=== PATIENT | female | born 1990 | race Caucasian/White ===

== ENCOUNTER 2017-03-03 01:22 | Inpatient (IN) | payer OTHER ==
[2017-03-03] MEDS ORDERED: LACTATED RINGERS 1,000 ML ONE (02:43)
[2017-03-03] MEDS ORDERED: BRETHINE IVP PRN (03:18)
[2017-03-03] MEDS ORDERED: MINERAL OIL PO PRN (03:18)
[2017-03-03] MEDS ORDERED: ePHEDrine SULFATE IV PRN ×2 (03:18→06:13)
[2017-03-03] MEDS ORDERED: XYLOCAINE 2% INFILTRATI ONE ×2 (03:18→15:49)
[2017-03-03] MEDS ORDERED: BRETHINE SUB-Q PRN (03:18)
[2017-03-03] MEDS ORDERED: SUBLIMAZE IV PRN (03:18)
--- NOTE | 2017-03-03 03:18 | History and Physical Report ---
History of Present Illness Date of examination: 03/03/17 Date of admission: 03/03/17 02:26 Chief complaint: Painful contractions History of present illness: 26-year-old at 39+5 weeks presents in active labor, she is a life cycle OBGYN patient. course has been unremarkable Past History Past Medical History: no pertinent history Past Surgical History: no surgical history [employer] History: denies: chlamydia, gonorrhea, hepatitis B, hepatitis C, herpes, HIV , syphilis, trichomonas Social history: single, full code. denies: smoking, alcohol abuse, prescription drug abuse, IV drug use - Obstetrical History Expected Date of Delivery: 03/05/17 Actual Gestation: 39 Week(s) 5 Day(s) : 1 Para: 0 Medications and Allergies Allergies Allergy/AdvReac Type Severity Reaction Status Date / Time Penicillins Allergy Hives Verified 03/03/17 01:56 Home Medications Medication Instructions Recorded Confirmed Last Taken Type Vit No.130/Iron/Folic 1 tab PO DAILY 03/03/17 03/03/17 03/02/17 12:00 History [ Tablet] Review of Systems Constitutional: no fever, no chills, no lethargy, no chronic headaches Cardiovascular: no chest pain, no orthopnea, no palpitations, no edema, no syncope, no lightheadedness, no shortness of breath, no dyspnea on exertion, no high blood pressure Respiratory: no cough, no shortness of breath, no dyspnea on exertion Gastrointestinal: abdominal pain, no nausea, no vomiting Genitourinary: contractions, no vaginal bleeding, no vaginal discharge, no leakage of fluid - Vital Signs Vital signs: Vital Signs Pulse Pulse Ox 90 98 03/03/17 01:47 03/03/17 01:47 Temp Pulse Resp BP Pulse Ox 98.4 F 101 H 16 112/77 99 03/03/17 01:58 03/03/17 02:50 03/03/17 01:58 03/03/17 01:48 03/03/17 02:50 - Physical Exam Cardiovascular: Regular rate, Normal S1, Normal S2 Lungs: Positive: Clear to auscultation, Normal air movement Abdomen: Positive: normal appearance, soft. Negative: distention, tenderness, guarding, rigidity Genitourinary (Female): Positive: normal external genitalia Uterus: Positive: enlarged (EFW ~ 3600) Adnexa: both: normal Extremities: Positive: normal Results All other labs normal. Assessment and Plan A: 26 y/o at 39+5 wks in active labour -Cat 1 tracing -GBS neg P: -Admit -Labs -Epidural prn -Expectant mgt - Patient Problems (1) 39 weeks gestation of Current Visit: Yes Status: Acute (2) Active labor at term Current Visit: Yes Status: Acute
[2017-03-03] MEDS: LACTATED RINGERS 1,000 ML IV SCH ×2 (03:48→06:04)
[2017-03-03] MEDS ORDERED: PITOCin/NS 30 UNIT/500ML 30 UNITS/500 ML BAG IV SCH (04:00)
[2017-03-03 04:01] LABS: Hematocrit 35.4 % (30.3-42.9); Hemoglobin 11.7 gm/dl (10.1-14.3); Mean Corpuscular HGB Conc 33 % (30-34); Mean Corpuscular Hemoglobin 30 pg (28-32); Mean Corpuscular Volume 92 fl (79-97); Platelet Count 205 K/mm3 (140-440); Red Blood Count 3.85 M/mm3 (3.65-5.03); White Blood Count 11.5 K/mm3 (4.5-11.0)
[2017-03-03] MEDS ORDERED: ePHEDrine SULFATE ONE (04:09)
[2017-03-03] MEDS ORDERED: NARCAN 2 MG/2 ML IV PRN (06:13)
--- NOTE | 2017-03-03 06:13 | Anesthesia Consultation ---
Anesthesia Consult and Med Hx Date of service: 03/03/17 - Airway Anesthetic Teeth Evaluation: Good ROM Head & Neck: Adequate Mental/Hyoid Distance: Adequate Mallampati Class: Class II Intubation Access Assessment: Good - Pulmonary Exam CTA: Yes - Cardiac Exam Cardiac Exam: No Murmur - Pre-Operative Health Status ASA Pre-Surgery Classification: ASA2 Proposed Anesthetic Plan: Epidural - Pulmonary Hx Asthma: No COPD: No Hx Pneumonia: No - Cardiovascular System Hx Hypertension: No - Central Nervous System Hx Seizures: No Hx Psychiatric Problems: No - Endocrine Hx Renal Disease: No Hx End Stage Renal Disease: No Hx Hypothyroidism: No Hx Hyperthyroidism: No - Hematic Hx Anemia: No Hx Sickle Cell Disease: No - Other Systems Hx Alcohol Use: No
[2017-03-03] MEDS ORDERED: fentaNYL-BUPIV 2 MCG/ML-0.125% 200 MCG/100 ML BAG EPIDURAL SCH (07:00)
--- NOTE | 2017-03-03 10:15 | Progress Note ---
Assessment and Plan A: IUP @ 39 5/7 Weeks Category I Tracing Active Labor GBS Negative P: AROM Multiple Maternal Position Changes Pitocin Augmentation Subjective - Subjective Date of service: 03/03/17 Patient reports: other (Resting well under epidural) Objective - Vital Signs Vital Signs: Vital Signs - 12hr 03/03/17 03/03/17 03/03/17 01:47 01:48 01:52 Temperature Pulse Rate 90 102 H 84 Respiratory Rate Blood Pressure 112/77 Blood Pressure [Right] O2 Sat by Pulse 98 100 Oximetry 03/03/17 03/03/17 03/03/17 01:57 01:58 02:02 Temperature 98.4 F Pulse Rate 86 98 H Respiratory 16 Rate Blood Pressure Blood Pressure [Right] O2 Sat by Pulse 98 97 Oximetry 03/03/17 03/03/17 03/03/17 02:07 02:12 02:17 Temperature Pulse Rate 122 H 92 H 81 Respiratory Rate Blood Pressure Blood Pressure [Right] O2 Sat by Pulse 98 97 97 Oximetry 03/03/17 03/03/17 03/03/17 02:50 03:19 03:24 Temperature Pulse Rate 101 H 85 97 H Respiratory Rate Blood Pressure Blood Pressure [Right] O2 Sat by Pulse 99 99 99 Oximetry 03/03/17 03/03/17 03/03/17 03:29 03:34 03:35 Temperature Pulse Rate 92 H 102 H Respiratory 18 Rate Blood Pressure Blood Pressure [Right] O2 Sat by Pulse 99 100 Oximetry 03/03/17 03/03/17 03/03/17 03:39 03:41 03:44 Temperature 98.7 F Pulse Rate 97 H 80 98 H Respiratory 18 Rate Blood Pressure Blood Pressure 111/75 [Right] O2 Sat by Pulse 100 100 99 Oximetry 03/03/17 03/03/17 03/03/17 03:46 03:49 03:54 Temperature Pulse Rate 110 H 94 H 86 Respiratory Rate Blood Pressure 111/75 Blood Pressure [Right] O2 Sat by Pulse 99 97 Oximetry 03/03/17 03/03/17 03/03/17 03:59 04:04 04:09 Temperature Pulse Rate 111 H 114 H 107 H Respiratory Rate Blood Pressure Blood Pressure [Right] O2 Sat by Pulse 98 98 98 Oximetry 03/03/17 03/03/17 03/03/17 04:14 04:19 04:24 Temperature Pulse Rate 99 H 101 H 117 H Respiratory Rate Blood Pressure Blood Pressure [Right] O2 Sat by Pulse 100 97 98 Oximetry 03/03/17 03/03/17 03/03/17 04:29 04:45 04:50 Temperature Pulse Rate 109 H 115 H Respiratory Rate Blood Pressure Blood Pressure [Right] O2 Sat by Pulse 97 99 98 Oximetry 03/03/17 03/03/17 03/03/17 04:55 05:00 05:05 Temperature Pulse Rate 103 H 96 H 91 H Respiratory Rate Blood Pressure Blood Pressure [Right] O2 Sat by Pulse 98 99 98 Oximetry 03/03/17 03/03/17 03/03/17 05:11 05:15 05:20 Temperature Pulse Rate 92 H 103 H 123 H Respiratory Rate Blood Pressure Blood Pressure [Right] O2 Sat by Pulse 97 99 99 Oximetry 03/03/17 03/03/17 03/03/17 05:26 05:31 05:36 Temperature Pulse Rate 100 H 105 H 103 H Respiratory Rate Blood Pressure Blood Pressure [Right] O2 Sat by Pulse 98 99 98 Oximetry 03/03/17 03/03/17 03/03/17 05:40 05:46 05:50 Temperature Pulse Rate 113 H 89 103 H Respiratory Rate Blood Pressure Blood Pressure [Right] O2 Sat by Pulse 99 98 99 Oximetry 03/03/17 03/03/17 03/03/17 05:55 06:01 06:03 Temperature Pulse Rate 114 H 115 H 104 H Respiratory Rate Blood Pressure 124/77 Blood Pressure [Right] O2 Sat by Pulse 100 98 Oximetry 03/03/17 03/03/17 03/03/17 06:05 06:06 06:07 Temperature Pulse Rate 109 H 110 H 113 H Respiratory Rate Blood Pressure 119/71 112/68 Blood Pressure [Right] O2 Sat by Pulse 100 Oximetry 03/03/17 03/03/17 03/03/17 06:09 06:11 06:13 Temperature Pulse Rate 110 H 112 H 98 H Respiratory Rate Blood Pressure 113/68 116/68 124/62 Blood Pressure [Right] O2 Sat by Pulse 99 Oximetry 03/03/17 03/03/17 03/03/17 06:15 06:16 06:19 Temperature Pulse Rate 109 H 110 H 142 H Respiratory Rate Blood Pressure 106/56 98/54 Blood Pressure [Right] O2 Sat by Pulse 100 Oximetry 03/03/17 03/03/17 03/03/17 06:21 06:23 06:25 Temperature Pulse Rate 121 H 129 H 112 H Respiratory Rate Blood Pressure 101/60 104/52 104/56 Blood Pressure [Right] O2 Sat by Pulse 97 Oximetry 03/03/17 03/03/17 03/03/17 06:26 06:27 06:31 Temperature Pulse Rate 132 H 99 H 84 Respiratory Rate Blood Pressure 107/56 Blood Pressure [Right] O2 Sat by Pulse 99 99 Oximetry 03/03/17 03/03/17 03/03/17 06:35 06:39 06:41 Temperature Pulse Rate 106 H 107 H 121 H Respiratory Rate Blood Pressure 119/66 Blood Pressure [Right] O2 Sat by Pulse 99 99 Oximetry 03/03/17 03/03/17 03/03/17 06:46 06:51 06:56 Temperature Pulse Rate 105 H 103 H 110 H Respiratory Rate Blood Pressure Blood Pressure [Right] O2 Sat by Pulse 98 98 97 Oximetry 03/03/17 03/03/17 03/03/17 07:00 07:01 07:06 Temperature Pulse Rate 101 H 105 H 117 H Respiratory Rate Blood Pressure 118/65 Blood Pressure [Right] O2 Sat by Pulse 98 97 Oximetry 03/03/17 03/03/17 03/03/17 07:07 07:11 07:15 Temperature 98.2 F Pulse Rate 121 H 100 H Respiratory 18 Rate Blood Pressure 107/61 Blood Pressure [Right] O2 Sat by Pulse 98 Oximetry 03/03/17 03/03/17 03/03/17 07:16 07:21 07:26 Temperature Pulse Rate 114 H 101 H 131 H Respiratory Rate Blood Pressure Blood Pressure [Right] O2 Sat by Pulse 98 97 99 Oximetry 03/03/17 03/03/17 03/03/17 07:31 07:36 07:41 Temperature Pulse Rate 108 H 113 H 109 H Respiratory Rate Blood Pressure Blood Pressure [Right] O2 Sat by Pulse 97 97 98 Oximetry 03/03/17 03/03/17 03/03/17 07:46 07:51 07:56 Temperature Pulse Rate 108 H 131 H 144 H Respiratory Rate Blood Pressure 105/59 Blood Pressure [Right] O2 Sat by Pulse 98 97 99 Oximetry 03/03/17 03/03/17 03/03/17 08:01 08:06 08:11 Temperature Pulse Rate 87 90 127 H Respiratory Rate Blood Pressure Blood Pressure [Right] O2 Sat by Pulse 95 96 97 Oximetry 03/03/17 03/03/17 03/03/17 08:16 08:21 08:26 Temperature Pulse Rate 164 H 100 H 140 H Respiratory Rate Blood Pressure 87/51 Blood Pressure [Right] O2 Sat by Pulse 97 97 97 Oximetry 03/03/17 03/03/17 03/03/17 08:31 08:36 08:41 Temperature Pulse Rate 108 H 85 80 Respiratory Rate Blood Pressure Blood Pressure [Right] O2 Sat by Pulse 96 95 96 Oximetry 03/03/17 03/03/17 03/03/17 08:45 08:46 08:51 Temperature Pulse Rate 150 H 138 H 166 H Respiratory Rate Blood Pressure 87/50 Blood Pressure [Right] O2 Sat by Pulse 98 97 Oximetry 03/03/17 03/03/17 03/03/17 08:56 09:01 09:06 Temperature Pulse Rate 112 H 89 112 H Respiratory Rate Blood Pressure Blood Pressure [Right] O2 Sat by Pulse 97 97 96 Oximetry 03/03/17 03/03/17 03/03/17 09:11 09:16 09:21 Temperature Pulse Rate 89 92 H 89 Respiratory Rate Blood Pressure 108/67 Blood Pressure [Right] O2 Sat by Pulse 96 96 95 Oximetry 03/03/17 03/03/17 03/03/17 09:25 09:26 09:31 Temperature Pulse Rate 96 H 84 90 Respiratory Rate Blood Pressure Blood Pressure [Right] O2 Sat by Pulse 94 95 96 Oximetry 03/03/17 03/03/17 03/03/17 09:36 09:41 09:46 Temperature Pulse Rate 98 H 89 78 Respiratory Rate Blood Pressure 104/65 Blood Pressure [Right] O2 Sat by Pulse 97 96 97 Oximetry 03/03/17 03/03/17 03/03/17 09:51 09:56 10:01 Temperature Pulse Rate 100 H 86 153 H Respiratory Rate Blood Pressure Blood Pressure [Right] O2 Sat by Pulse 96 96 98 Oximetry 03/03/17 03/03/17 10:06 10:11 Temperature Pulse Rate 162 H 142 H Respiratory Rate Blood Pressure Blood Pressure [Right] O2 Sat by Pulse 98 100 Oximetry - Exam Breasts: normal Cardiovascular: Regular rate Lungs: Clear to auscultation, Normal air movement Abdomen: Present: normal appearance, soft, normal bowel sounds Uterus: Present: normal, firm, fundal height above umbilicus FHR: category 1 Uterine Contraction Monitor Mode: External Cervical Dilatation: 7 Cervical Effacement Percentage: 90 station: -1 Uterine Contraction Pattern: Regular Uterine Tone Measurement Phase: Resting Uterine Contraction Intensity: Moderate Extremities: normal - Labs Labs: Abnormal Labs 03/03/17 03:20 WBC 11.5 H Laboratory Results - last 24 hr 03/03/17 03/03/17 03:20 03:20 WBC 11.5 H RBC 3.85 Hgb 11.7 Hct 35.4 MCV 92 MCH 30 MCHC 33 RDW 15.0 Plt Count 205 Blood Type O POSITIVE Antibody Screen Negative
[2017-03-03] MEDS: PITOCin/NS 20 UNIT/1000ML DRIP 20 UNITS/1,000 ML BAG IV SCH ×2 (14:33→15:44)
[2017-03-03] MEDS ORDERED: TUCKS PAD TP PRN (15:15)
[2017-03-03] MEDS ORDERED: ZOFRAN IV PRN (15:15)
[2017-03-03] MEDS ORDERED: DULCOLAX PR PRN (15:15)
[2017-03-03] MEDS ORDERED: LANSINOH TP PRN (15:15)
[2017-03-03] MEDS ORDERED: BENADRYL PO PRN (15:15)
[2017-03-03] MEDS ORDERED: MILK OF MAGNESIA PO PRN (15:15)
[2017-03-03] MEDS ORDERED: NORCO 5/325 PO PRN (15:22)
--- NOTE | 2017-03-03 15:25 | Procedure Note ---
OB Delivery Note - Delivery Date of Delivery: 03/03/17 (1430) Surgeon: ABRAHAM MARI Estimated blood loss: other (350) - Vaginal Delivery presentation: vertex Delivery position: OA Intrapartum events: meconium Delivery induction: none Delivery augmentation: rupture of membranes, pitocin Delivery monitor: external FHT, external uterine Route of delivery: Delivery placenta: spontaneous Delivery cord: 3 umbilical vessels Episiotomy: none Delivery laceration: 2nd degree Delivery repair: vicryl Anesthesia: epidural Delivery comments: of a live 7'4 female over a 2nd degree vaginal laceration under epidural anesthesia at 1430 on 03/03/2017 with Apgars of 7 and 9. not stimulated, Cord clamped and cut by STEVE Mari, and passed to awaiting NICU/ RESP team due to thick meconium stained fluids. Spontaneous delivery of placenta complete and intact with Blank side presenting at 1432. Fundus is firm and midline. Vaginal laceration repaired with 2-[address]-1. Uterine bleeding continues with a firm uterus. Upon cervical examination, appears to have a posterior cervical laceration. Vaginal vault packed with 4x4 sponges [address] Dr. Blanchard called to access cervix. Dr. Blanchard currently at bedside. Cord blood collected. Placenta to pathology. - A at 1 minute: 7 at 5 minutes: 9 Gender: Female (7'4)
[2017-03-03] MEDS ORDERED: SODIUM CHLORIDE FLUSH SYRINGE 10 ML IV SCH (16:00)
--- NOTE | 2017-03-03 16:08 | Procedure Note ---
Date of procedure: 03/03/17 Pre-op diagnosis: S/P Post-op diagnosis: other (vaginal laceration) Procedure: Repair of left vaginal wall laceration. I was called by Size Worker Jasmina to assess this patient who just delivered via a live female infant at 2:30 pm. She had a second degree perineal laceration which was repaired. She continued to have brisk bleeding while the uterus was well contracted. I found the patient lying in bed on the stirrups and alert, awake, oriented x 2. Patient had epidural. IV morphine was given. Exam: showed a deep left vaginal wall laceration which was actively bleeding. It was repaired using a 2.0 vicryl suture with good hemostasis. The cervix was carefully inspected and no laceration was found. Vaginal packing was placed. The uterus was firm. She remained stable. Surgeon: CHERYLE FAYE Estimated blood loss: minimal Pathology: none Condition: stable Disposition: other (Keep pt on Labor floor for 2 hours.)
[2017-03-03] MEDS ORDERED: MORPHINE IV ONE (16:27)
[2017-03-03] MEDS ORDERED: TYLENOL PO PRN (17:26)
[2017-03-03] MEDS: MOTRIN PO SCH (23:06)
[2017-03-04] MEDS ORDERED: DERMOPLAST TP ONE (00:09)
[2017-03-04] MEDS ORDERED: DERMOPLAST TP PRN (03:18)
--- NOTE | 2017-03-04 05:51 | Progress Note ---
Assessment and Plan A: PP Day #1 Stable P: Follow Routine Orders D/C Home in the AM Subjective - Subjective Date of service: 03/04/17 Patient reports: appetite normal, voiding normally, pain well controlled, flatus , ambulating normally : doing well, bottle feeding (and ) Objective - Vital Signs Latest vital signs: Vital Signs Temp Pulse Resp BP BP Pulse Ox 03/04/17 00:30 98.6 F 69 16 120/69 03/03/17 20:00 98.6 F 71 18 111/76 03/03/17 18:30 98.7 F 94 H 18 110/73 03/03/17 17:55 106 H 113/63 03/03/17 17:41 122 H 135/69 03/03/17 17:25 88 109/68 03/03/17 17:10 107 H 103/61 03/03/17 17:05 93 H 110/67 03/03/17 17:00 100.2 F H 03/03/17 16:40 104 H 111/71 03/03/17 16:25 117 H 110/72 03/03/17 16:10 112 H 106/70 03/03/17 15:55 136 H 113/72 03/03/17 15:40 117 H 112/69 03/03/17 15:31 18 03/03/17 15:25 116 H 107/67 03/03/17 15:10 113 H 110/69 03/03/17 14:45 122 H 107/64 03/03/17 14:05 99.2 F 03/03/17 13:47 144 H 106/53 03/03/17 13:36 145 H 100 03/03/17 13:31 136 H 98 03/03/17 13:26 165 H 100 03/03/17 13:21 178 H 100 03/03/17 13:17 144 H 137/63 03/03/17 13:16 104 H 99 03/03/17 13:11 92 H 99 03/03/17 13:06 87 99 03/03/17 13:01 88 98 03/03/17 12:56 111 H 98 03/03/17 12:51 92 H 98 03/03/17 12:46 101 H 98 03/03/17 12:45 89 108/68 03/03/17 12:41 140 H 98 10/18/17 12:36 136 H 97 10/18/17 12:31 151 H 98 10/18/17 12:26 143 H 98 10/18/17 12:21 96 H 99 10/18/17 12:16 93 H 118/75 99 10/18/17 12:11 111 H 97 10/18/17 12:06 86 98 10/18/17 12:01 109 H 98 10/18/17 11:56 83 98 10/18/17 11:51 88 97 10/18/17 11:46 113 H 104/59 98 10/18/17 11:41 113 H 98 10/18/17 11:36 102 H 98 10/18/17 11:31 98.7 F 111 H 99 10/18/17 11:26 92 H 97 10/18/17 11:21 99 H 98 10/18/17 11:16 110 H 98 10/18/17 11:15 104 H 111/67 10/18/17 11:11 133 H 100 10/18/17 11:06 95 H 98 10/18/17 11:01 109 H 99 10/18/17 10:56 108 H 98 10/18/17 10:51 101 H 99 10/18/17 10:46 120 H 100 10/18/17 10:45 115 H 94/58 10/18/17 10:41 92 H 100 10/18/17 10:36 105 H 100 10/18/17 10:31 112 H 100 10/18/17 10:26 101 H 100 10/18/17 10:21 118 H 100 10/18/17 10:16 81 98 10/18/17 10:15 78 94/55 10/18/17 10:11 142 H 100 10/18/17 10:06 162 H 98 10/18/17 10:01 153 H 98 10/18/17 09:56 86 96 10/18/17 09:51 100 H 96 10/18/17 09:46 78 104/65 97 10/18/17 09:41 89 96 10/18/17 09:36 98 H 97 10/18/17 09:31 90 96 10/18/17 09:26 84 95 10/18/17 09:25 96 H 94 10/18/17 09:21 89 95 10/18/17 09:16 92 H 108/67 96 10/18/17 09:11 89 96 10/18/17 09:06 112 H 96 10/18/17 09:01 89 97 10/18/17 08:56 112 H 97 10/18/17 08:51 166 H 97 10/18/17 08:46 138 H 98 10/18/17 08:45 150 H 87/50 10/18/17 08:41 80 96 10/18/17 08:36 85 95 10/18/17 08:31 108 H 96 10/18/17 08:26 140 H 97 10/18/17 08:21 100 H 97 10/18/17 08:16 164 H 87/51 97 10/18/17 08:11 127 H 97 10/18/17 08:06 90 96 10/18/17 08:01 87 95 10/18/17 07:56 144 H 99 10/18/17 07:51 131 H 97 10/18/17 07:46 108 H 105/59 98 10/18/17 07:41 109 H 98 10/18/17 07:36 113 H 97 10/18/17 07:31 108 H 97 10/18/17 07:26 131 H 99 10/18/17 07:21 101 H 97 10/18/17 07:16 114 H 98 10/18/17 07:15 100 H 107/61 10/18/17 07:11 121 H 98 10/18/17 07:07 98.2 F 18 10/18/17 07:06 117 H 97 10/18/17 07:01 105 H 98 10/18/17 07:00 101 H 118/65 10/18/17 06:56 110 H 97 10/18/17 06:51 103 H 98 10/18/17 06:46 105 H 98 10/18/17 06:41 121 H 99 10/18/17 06:39 107 H 119/66 10/18/17 06:35 106 H 99 10/18/17 06:31 84 99 10/18/17 06:27 99 H 107/56 10/18/17 06:26 132 H 99 10/18/17 06:25 112 H 104/56 10/18/17 06:23 129 H 104/52 10/18/17 06:21 121 H 101/60 97 03/03/17 06:19 142 H 98/54 03/03/17 06:16 110 H 100 03/03/17 06:15 109 H 106/56 03/03/17 06:13 98 H 124/62 03/03/17 06:11 112 H 116/68 99 03/03/17 06:09 110 H 113/68 03/03/17 06:07 113 H 112/68 03/03/17 06:06 110 H 100 03/03/17 06:05 109 H 119/71 03/03/17 06:03 104 H 124/77 03/03/17 06:01 115 H 98 03/03/17 05:55 114 H 100 Intake and Output 03/03/17 03/03/17 03/04/17 14:59 22:59 06:59 Intake Total 7.533 147.917 300 Output Total 800 500 500 Balance -792.467 -352.083 -200 Intake: IV 7.533 147.917 PITOCin/NS 20 UNIT/1000ML 147.917 DRIP 20 units In 1,000 ml @ 125 mls/hr IV DIRECT JORGE Rx#:[id number] PITOCin/NS 30 UNIT/500ML 7.533 30 units In 500 ml @ 1 MILLIUNITS/MIN 1 mls/hr IV TITR JORGE Rx#:[id number] Intake, Free Water 300 Output: Urine 800 500 500 Indwelling Catheter 800 500 Void 500 Other: Total, Output Amount 300 500 500 Estimated Blood Loss 350 - Exam Breasts: Present: normal Cardiovascular: Present: Regular rate Lungs: Present: Clear to auscultation, Normal air movement Abdomen: Present: normal appearance, soft, normal bowel sounds Uterus: Present: normal, firm, fundal height below umbilicus Extremities: Present: normal
--- NOTE | 2017-03-04 05:53 | Discharge Summary ---
Providers - Providers Date of Admission: 03/03/17 02:26 Date of discharge: 03/05/17 Attending physician: CHERYLE FAYE MD Primary care physician: CHERYLE FAYE MD Hospitalization Reason for admission: active labor Delivery: Episiotomy: none Laceration: 2nd degree Other procedures: none complications: none Discharge diagnosis: IUP at term delivered [place] baby: female Condition at discharge: Good Disposition: DC-01 TO HOME OR SELFCARE Plan - Provider Discharge Summary Activity: routine, no sex for 6 weeks, no heavy lifting 4 weeks, no strenuous exercise Diet: routine Instructions: routine Additional instructions: [] Smoking cessation referral if applicable(refer to patient education folder for contact #) [] Refer to [facility] Booklet Call your doctor immediately for: * Fever > 100.5 * Heavy vaginal bleeding ( >1 pad per hour) * Severe persistent headache * Shortness of breath * Reddened, hot, painful area to leg or breast * Drainage or odor from incision. * Keep incision clean and dry at all times and follow doctor's instructions regarding bathing/showering - Follow up plan Follow up: CHERYLE FAYE MD [Primary Care Provider] - 6 Weeks
[2017-03-04] MEDS: MOTRIN PO SCH ×3 (06:48→18:10)
[2017-03-04 06:53] LABS: Hematocrit 25.6 % (30.3-42.9); Hemoglobin 8.7 gm/dl (10.1-14.3)
[2017-03-04] MEDS: PRENATAL VITAMIN PO SCH (12:35)
[2017-03-05] MEDS: MOTRIN PO SCH ×3 (00:05→11:53)
[2017-03-05] MEDS: PRENATAL VITAMIN PO SCH (10:48)
[2017-03-05 16:05] VITALS: BP 107/71
== END 2017-03-05 18:30 | disposition home or self-care (01) | DRG 775 ==
LOC: TRG 01:22 → LD 02:26 → OB 18:14
PROVIDERS: ADMIT Obstetrics & Gynecology; ATTEND Obstetrics & Gynecology
PROC: 0KQM0ZZ Repair Perineum Muscle, Open Approach (ICD-10-PCS; principal; 2017-03-03)
PROC: 10E0XZZ Delivery of Products of Conception, External Approach (ICD-10-PCS; 2017-03-03)
PROC: 3E0S3BZ Introduction of Anesthetic Agent into Epidural Space, Percutaneous Approach (ICD-10-PCS; 2017-03-03)
PROC: 00HU33Z Insertion of Infusion Device into Spinal Canal, Percutaneous Approach (ICD-10-PCS; 2017-03-03)
DX: O77.0 Labor and delivery complicated by meconium in amniotic fluid (principal); O70.1 Second degree perineal laceration during delivery; Z3A.39 39 weeks gestation of pregnancy; Z37.0 Single live birth
CPT/HCPCS: 36415; 85014; 85018; 85027; 86592; 86850; 86900; 86901; 88307; 99211; G0463; J2270; J2590; J3010; J7120

== ENCOUNTER 2020-11-08 12:44 | Outpatient (CLI) | payer SELFPAY ==
[2020-11-08 14:41] VITALS: BP 126/82
[2020-11-08] MEDS ORDERED: LACTATED RINGERS 1,000 ML IV ONE (15:00)
[2020-11-08] MEDS ORDERED: LACTATED RINGERS 1,000 ML ONE (15:03)
--- NOTE | 2020-11-08 18:08 | Ultrasound Report ---
ULTRASOUND LIMITED OB HISTORY: DECREASED FM COMPARISON: None. TECHNIQUE: Multiple real-time ultrasonographic grayscale and color doppler images were obtained FINDINGS: Intrauterine present in cephalic position. heart rate 145. SUMMER 13.5 IMPRESSION: 1. Limited exam as noted Signer Name: Zelalem Bueno MD Signed: 11/08/2020 6:04 PM Workstation Name: [facility]
--- NOTE | 2020-11-09 07:00 | Ultrasound Report ---
: ULTRASOUND BIOPHYSICAL PROFILE INDICATION / CLINICAL INFORMATION: DECREASED FM. COMPARISON: None available. FINDINGS: BREATHING MOVEMENT = 2 GROSS BODY MOVEMENT = 2 TONE = 2 QUALITATIVE AMNIOTIC FLUID VOLUME = 2 TOTAL BIOPHYSICAL SCORE = 12/22 AMNIOTIC FLUID INDEX (cm) = 13.5 PRESENTATION: Cephalic. HEART RATE (beats per minute): 145 IMPRESSION: 1. biophysical profile = 12/22 Signer Name: Dawson Greene MD Signed: 11/09/2020 6:55 AM Workstation Name: [id number]
== END 2020-11-08 16:43 | disposition home or self-care (01) ==
LOC: EDBD → TRG 12:44 → APU 15:39 → TRG 16:43
DX: O47.1 False labor at or after 37 completed weeks of gestation (principal); Z3A.39 39 weeks gestation of pregnancy
CPT/HCPCS: 59025; 76815; 76819; J7120

== ENCOUNTER 2020-11-08 20:20 | Inpatient (IN) | payer MEDICAID, OTHER ==
[2020-11-08] MEDS ORDERED: LIDOCAINE (2%) 20 MG/1 ML VIAL 20 ML MDV INFILTRATI ONE (20:58)
[2020-11-08] MEDS ORDERED: OXYTOCIN 10 UNIT/1 ML INJ IM PRN (20:58)
[2020-11-08] MEDS ORDERED: miSOPROStol 200 MCG TAB PR PRN (20:58)
[2020-11-08] MEDS ORDERED: ONDANSETRON 4 MG/2 ML INJ IV PRN (20:58)
[2020-11-08] MEDS ORDERED: METHYLERGONOVINE MALEATE 0.2 MG/ML VIAL IM PRN (20:58)
[2020-11-08] MEDS ORDERED: CARBOPROST TROMETHAMINE 250 MCG/1 ML INJ IM PRN (20:58)
[2020-11-08] MEDS ORDERED: TERBUTALINE 1 MG/1 ML INJ SUB-Q PRN (20:58)
[2020-11-08] MEDS ORDERED: LOPERAMIDE 2 MG CAP PO PRN (20:58)
[2020-11-08] MEDS ORDERED: ePHEDrine SULFATE 50 MG/1 ML INJ IV PRN (20:58)
[2020-11-08] MEDS ORDERED: MINERAL OIL 30 ML ORAL LIQD PO PRN (20:58)
[2020-11-08] MEDS ORDERED: OXYTOCIN DRIP 30 UNITS/500 ML BAG IV SCH (21:00)
[2020-11-08] MEDS ORDERED: VANCOMYCIN/NS 1 GM/250 ML 1 GM/250 ML BAG IV SCH (21:00)
--- NOTE | 2020-11-08 21:02 | History and Physical Report ---
History of Present Illness Date of examination: 11/08/20 Date of admission: 11/08/2020 Chief complaint: Contractions History of present illness: 29 year old female presents in active labor. Patient reports regular contractions. Denies leaking of water or vaginal bleeding. Patient received care at [facility] and records are available. LMP 02/05/2020. EDC 11/11/20. significant for the following: elevated 1 hour sugar test (normal 3 hour OGTT), anemia. labs are as follows: O+, antibody screen negative, rubella immune, hepatitis B surface antigen negative, RPR nonreactive, HIV negative, chlamydia negative, gonorrhea negative, pap smear negative, 1 hour sugar test 138, 3 hour OGTT normal), GBS negative. 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 denies: smoking, alcohol abuse, prescription drug abuse, IV drug use - Obstetrical History Expected Date of Delivery: 11/11/20 Actual Gestation: 39 Week(s) 4 Day(s) : 2 Para: 1 Hx # Term Pregnancies: 1 Number of Pregnancies: 0 Spontaneous Abortions: 0 Induced : 0 Number of Living Children: 1 Medications and Allergies Allergies Allergy/AdvReac Type Severity Reaction Status Date / Time Penicillins Allergy Severe Hives Verified 11/08/20 14:57 Home Medications Medication Instructions Recorded Confirmed Last Taken Type Vit No.130/Iron/Folic 1 tab PO DAILY 03/03/17 03/03/17 03/02/17 12:00 History [ Tablet] Review of Systems All systems: negative (contractions) - Vital Signs Vital signs: Vital Signs Pulse BP 96 H 130/89 11/08/20 20:49 11/08/20 20:49 Temp Pulse Resp BP Pulse Ox 99.4 F 96 H 18 130/89 11/08/20 20:58 11/08/20 20:58 11/08/20 20:58 11/08/20 20:58 - Physical Exam Abdomen: Positive: normal appearance, soft. Negative: distention, tenderness, guarding, rigidity Genitourinary (Female): Positive: normal external genitalia, normal perenium. Negative: perineal/vulvar lesions Vagina: Positive: normal moisture Uterus: Positive: enlarged. Negative: tender Anus/Rectum: Positive: normal perianal skin Extremities: Negative: tenderness, edema - Obstetrical FHR: category 1 Uterine Contraction Monitor Mode: External Cervical Dilatation: 5 Cervical Effacement Percentage: 70 (Exam by RN upon pt.'s arrival) station: -2 Uterine Contraction Pattern: Regular Uterine Contraction Intensity: Moderate Results All other labs normal. Assessment and Plan A: at 39 weeks, 4 days gestation. Active labor. GBS negative. P: Admit. EFM. Anticipate vaginal .
[2020-11-08] MEDS: LACTATED RINGERS 1,000 ML IV SCH (21:43)
[2020-11-08] MEDS: fentaNYL 100 MCG/2 ML INJ IV PRN ×2 (21:45→23:56)
--- NOTE | 2020-11-08 21:54 | Event Note ---
Date: 11/08/20 SVE /-2/BBOW.
[2020-11-08 22:19] LABS: Hematocrit 35.6 % (30.3-42.9); Hemoglobin 12.3 gm/dl (10.1-14.3); Mean Corpuscular HGB Conc 35 % (30-34); Mean Corpuscular Volume 95 fl (79-97); Platelet Count 175 K/mm3 (140-440); Red Blood Count 3.76 M/mm3 (3.65-5.03); Red Cell Distribution Width 14.6 % (13.2-15.2)
[2020-11-09 00:30] LABS: Alanine Aminotransferase 10 units/L (7-56); Albumin 3.5 g/dL (3.9-5); Blood Urea Nitrogen 6 mg/dL (7-17); Calcium 8.7 mg/dL (8.4-10.2); Hemolysis Index 9
[2020-11-09 00:51] LABS: BUN/Creatinine Ratio 15
[2020-11-09] MEDS ORDERED: NalbUPHINE 10 MG/1 ML INJ IV PRN ×2 (02:55→07:00)
[2020-11-09] MEDS ORDERED: ePHEDrine SULFATE 50 MG/1 ML INJ IV PRN (02:55)
[2020-11-09] MEDS ORDERED: ONDANSETRON 4 MG/2 ML INJ IV PRN (02:55)
[2020-11-09] MEDS ORDERED: LACTATED RINGERS 250 ML IV SOLN IV ONE (02:55)
[2020-11-09] MEDS ORDERED: NALOXONE 2 MG/2 ML INJ IV PRN (02:55)
[2020-11-09] MEDS ORDERED: diphenhydrAMINE 50 MG/ML VIAL IV PRN (02:55)
[2020-11-09] MEDS ORDERED: SODIUM CHLORIDE 0.9% 1000 ML 1,000 ML VG SCH (03:00)
[2020-11-09] MEDS ORDERED: fentaNYL-BUPIV 2 MCG/ML-0.125% 200 MCG/100 ML BAG EPIDURAL SCH (03:00)
--- NOTE | 2020-11-09 03:02 | Event Note ---
Date: 11/09/20 Amnioinfusion ordered for variable FHR decelerations; IUPC placed. Lateral positioning. Moderate FHR variability. Patient is 9 cm dilated and -1 station.
[2020-11-09] MEDS ORDERED: ACETAMINOPHEN 325 MG TAB PO ONE (03:09)
--- NOTE | 2020-11-09 03:21 | Anesthesia Consultation ---
Anesthesia Consult and Med Hx Date of service: 11/09/20 - Airway Anesthetic Teeth Evaluation: Good ROM Head & Neck: Adequate Mental/Hyoid Distance: Adequate Mallampati Class: Class II Intubation Access Assessment: Probably Good - Pulmonary Exam CTA: Yes - Cardiac Exam Cardiac Exam: RRR - Pre-Operative Health Status ASA Pre-Surgery Classification: ASA2 Proposed Anesthetic Plan: Epidural, Spinal - Pulmonary Hx Smoking: No Hx Asthma: No COPD: No Hx Pneumonia: No Hx Sleep Apnea: No - Cardiovascular System Hx Hypertension: No Hx Heart Attack/AMI: No Hx Angina: No - Central Nervous System Hx Seizures: No Hx Psychiatric Problems: No - Gastrointestinal Hx Gastroesophageal Reflux Disease: No - Endocrine Hx Renal Disease: No Hx End Stage Renal Disease: No Hx Liver Disease: No Hx Insulin Dependent Diabetes: No Hx Non-Insulin Dependent Diabetes: No Hx Hypothyroidism: No Hx Hyperthyroidism: No - Hematic Hx Anemia: No Hx Sickle Cell Disease: No - Other Systems Hx Alcohol Use: No
--- NOTE | 2020-11-09 03:24 | Progress Note ---
Labor Epidural - Labor Epidural Start Time: 03:04 Stop Time: 03:16 Performed by:: TOBIAS ZAPIEN Procedure: Patient is requesting combined spinal epidural for labor and pain. H&P, labs were reviewed. All questions and concerns were answered. Informed consent was obtained. Timeout performed. Patient in sitting position on side of bed. Sterile prep and drape was performed. 3 mL 1% lidocaine skin wheal at L [3]-L [4]. 18-gauge comfort epidural needle advanced to [id number] using air technique, [7]. 27-gauge spinal needle advanced, positive free-flowing CSF. Spinal dose of [marcaine 4mg]. Epidural catheter advanced to [12] cm. [negative] Aspiration, [negative] test dose. Sterile dressing applied. Patient tolerated procedure well.
[2020-11-09] MEDS ORDERED: BICITRA ORAL LIQD 30ML ONE (05:02)
[2020-11-09] MEDS ORDERED: METOCLOPRAMIDE 10 MG/2 ML INJ ONE (05:02)
[2020-11-09] MEDS ORDERED: FAMOTIDINE 20 MG/2 ML INJ IV ONE ×2 (05:02→05:05)
[2020-11-09] MEDS ORDERED: ceFAZolin/Water 2 GM/20 ML 2 GM/20 ML SYRINGE IV ONE (05:02)
[2020-11-09] MEDS ORDERED: GENTAMICIN/NS 100 MG/100 ML 100 MG/100 ML BAG IV ONE (05:05)
[2020-11-09] MEDS ORDERED: BICITRA ORAL LIQD 30ML PO ONE (05:05)
[2020-11-09] MEDS ORDERED: METOCLOPRAMIDE 10 MG/2 ML INJ IV ONE (05:05)
[2020-11-09] MEDS ORDERED: LIDOCAINE 2%/EPINEPHRINE 1:200,000 VIAL (20 ML) INFILTRATI ONE (05:09)
[2020-11-09] MEDS ORDERED: LACTATED RINGERS 1,000 ML IV SCH (05:15)
[2020-11-09] MEDS ORDERED: KETOROLAC 30 MG/1 ML INJ ONE (05:18)
[2020-11-09] MEDS ORDERED: ONDANSETRON 4 MG/2 ML INJ ONE (05:18)
--- NOTE | 2020-11-09 05:19 | Event Note ---
Date: 11/09/20 Patient became complete and started pushing at 04:45. Variable FHR deceleration noted into 70s with gradual return to baseline. Called Dr. Stover at 04:46 to come and expedite delivery due to FHR tracing. Dr. Stover came and assessed patient and attempted to deliver baby with kiwi vacuum. Vacuum unsuccessful and stat section called at 04:55. Team notified and orders put in.
[2020-11-09] MEDS ORDERED: WATER FOR IRRIG STERILE 1,500 ML BOTTLE IR ONE (05:20)
[2020-11-09] MEDS ORDERED: SODIUM CHLORIDE 0.9% IRR 1,500 ML BOTTLE IR ONE (05:20)
[2020-11-09] MEDS ORDERED: LACTATED RINGERS 1,000 ML ONE (05:41)
[2020-11-09] MEDS ORDERED: ESMOLOL 100 MG/10 ML INJ IV ONE (05:50)
[2020-11-09] MEDS ORDERED: oxyCODONE /ACETAMINOPHEN 5-325MG TAB PO PRN (06:38)
[2020-11-09] MEDS ORDERED: PROMETHAZINE 25 MG RECT SUPP PR PRN (06:38)
[2020-11-09] MEDS ORDERED: SENNOSIDES 8.6 MG TAB PO PRN (06:38)
[2020-11-09] MEDS ORDERED: LANOLIN/ZINC/DIMETHICONE (LANSINOH) 7 GM TP PRN (06:38)
[2020-11-09] MEDS ORDERED: MAGNESIUM HYDROXIDE (MOM) ORAL LIQD UDC PO PRN (06:38)
[2020-11-09] MEDS ORDERED: WITCH HAZEL/ GLYCERIN PAD TP PRN (06:38)
[2020-11-09] MEDS ORDERED: NALOXONE 0.4 MG/1 ML INJ IV PRN (06:38)
[2020-11-09] MEDS ORDERED: SIMETHICONE 80 MG CHEW TAB PO PRN (06:38)
[2020-11-09] MEDS ORDERED: ACETAMINOPHEN 325 MG TAB PO PRN (06:38)
[2020-11-09] MEDS ORDERED: MORPHINE 4 MG/1 ML INJ IV PRN (06:38)
[2020-11-09] MEDS ORDERED: HYDROCORTISONE 25 MG RECTAL SUPP PR PRN (06:38)
--- NOTE | 2020-11-09 06:45 | Procedure Note ---
OB Delivery Note - Delivery Date of Delivery: 11/09/20 Surgeon: MALIK GONZALEZ JR Estimated blood loss: other (600cc) - Section Preop diagnosis: nonreassuring FHR tracing Postop diagnosis: same section procedure: section, primary low transverse Disposition: PACU Complications: none Narrative: Indication: 21 year old admitted at 39w4d EDWIN 11/11/20 c/b elevated 1 hour sugar test (normal 3 hour OGTT), anemia venting and active labor status post failed augmentation of labor secondary to nonreassuring heart tones for primary . Findings: Normal uterus, tubes and ovaries. Clear fluid. No nuchal cord. Delivery of male infant at 0543 Weight 3646g Height 21 in APGARS 8/9 EBL 600 IVF 1000 UOP 200 Procedure: Patient was taken to the operating room prepped and draped in the usual sterile fashion. Pfannenstiel skin incision was made and carried down to the underlying fascia. Fascia was incised and the incision was distended bilaterally. Rectus fascia was dissected off the rectus muscle superiorly and inferiorly. Peritoneum was identified and entered. Peritoneal incision extended superiorly and inferiorly. The bladder was visualized. The bladder blade was placed. Uterine hysterotomy incision was made and extended bilateral ly. The baby was delivered in the typical vertex fashion. Baby was bulb suction at delivery. The cord was cut and clamped and handed off to the team. The placenta was delivered spontaneously. The uterus was exteriorized and cleared of all clots and debris. Uterine incision was closed with a 0 Vicryl in a running locked fashion. Good hemostasis was noted after 2 [id number] sutures applied to the uterine incision using 0 Vicryl. Hemoblast was applied to the uterine incisional base to provide hemostasis. The urine was noted to be clear. Uterus, tubes, and ovaries were returned to the abdominal cavity. Bilateral gutters were cleared and the abdomen and pelvis were irrigated. Good hemostasis noted. The rectus muscle was reapproximated with 2-0 Vicryl. Attention was directed towards the rectus fascia which was reapproximated with 0 PDS in a running fashion. The subcutaneous tissue was irrigated and reapproximated with 2-0 Vicryl in a running fashion. Skin was cl osed with a 4-0 Vicryl in a subcuticular fashion. The procedure was completed and the patient tolerated the procedure well. All instruments and lap counts were correct x2. - Infant A at 1 minute: 8 at 5 minutes: 9 Gender: Male
[2020-11-09] MEDS ORDERED: OXYTOCIN DRIP 30 UNITS/500 ML BAG IV SCH (07:00)
[2020-11-09] MEDS ORDERED: HYDROmorphone 1 MG/1 ML INJ IV PRN ×2 (07:00)
[2020-11-09] MEDS ORDERED: PROMETHAZINE 25 MG TAB PO PRN (07:00)
--- NOTE | 2020-11-09 07:00 | Anesthesia Day of Surgery ---
Anesthesia Day of Surgery - Day of Surgery Patient Examined: Yes Patient H&P Reviewed: Yes Patient is NPO: Yes Beta Blockers: No Cardiac Clearance: No Pulmonary Clearance: No Miguel's Test: N/A
[2020-11-09] MEDS: KETOROLAC 30 MG/1 ML INJ IV SCH ×3 (11:58→23:20)
--- NOTE | 2020-11-09 14:48 | Post Anesthesia Evaluation ---
- Post Anesthesia Evaluation Patient Participated: Yes Airway Patent: Yes Stable Respiratory Function: Yes Nausea/Vomiting: No Temp > 96.8F: Yes Pain Manageable: Yes Adequeate Hydration: Yes Anesthesia Complications: No Block Receding Appropriately: Yes Patient on Ventilator: No
[2020-11-09] MEDS: LACTATED RINGERS 1,000 ML IV SCH (17:37)
[2020-11-09 19:47] LABS: Hematocrit 26.2 % (30.3-42.9); Hemoglobin 8.8 gm/dl (10.1-14.3)
[2020-11-10] MEDS: KETOROLAC 30 MG/1 ML INJ IV SCH (04:50)
[2020-11-10] MEDS ORDERED: KETOROLAC 30 MG/1 ML INJ IV SCH (05:15)
[2020-11-10] MEDS: ONDANSETRON 4 MG/2 ML INJ IV PRN ×2 (13:31→23:03)
--- NOTE | 2020-11-10 17:27 | Progress Note ---
Assessment and Plan A: /postop day 1 S/P primary LTCS. Anemia. P: Supplement with oral iron. Encouraged ambulation. Routine /postop care. Subjective - Subjective Date of service: 11/10/20 Principal diagnosis: /postop day 1 S/P primary LTCS Patient reports: appetite normal, voiding normally, pain well controlled, flatus, ambulating normally, no dizzy ambulation, no nauseated : doing well, nursing well Objective - Vital Signs Latest vital signs: Vital Signs Temp Pulse Resp BP Pulse Ox 11/10/20 08:49 98.3 F 90 18 122/83 98 11/10/20 04:24 98.4 F 97 H 18 118/77 98 11/10/20 00:55 98.0 F 112 H 18 128/84 97 11/09/20 21:11 98.0 F 93 H 18 115/75 98 11/09/20 17:34 20 Intake and Output 11/10/20 11/10/20 11/10/20 07:59 15:59 23:59 Intake Total 120 240 Output Total 300 Balance -180 240 Intake: Oral 120 240 Output: Urine 300 Void 300 Other: Total, Intake Amount 120 240 Total, Output Amount 300 # Voids Void 1 - Exam Cardiovascular: Present: Regular rate Lungs: Present: Clear to auscultation Abdomen: Present: normal appearance, soft, normal bowel sounds. Absent: distent ion, tenderness, guarding, rigidity Uterus: Present: normal, firm, fundal height below umbilicus. Absent: bogginess, tenderness Extremities: Present: normal. Absent: tenderness Incision: Present: normal, dry, dressed - Labs Labs: Abnormal lab results 11/09/20 Range/Units 18:58 Hgb 8.8 L D (10.1-14.3) gm/dl Hct 26.2 L D (30.3-42.9) %
[2020-11-11] MEDS: FERROUS SULFATE 325 MG TAB PO SCH (09:49)
[2020-11-11] MEDS: IBUPROFEN 800 MG TAB PO PRN ×3 (09:49→23:31)
--- NOTE | 2020-11-11 12:20 | Progress Note ---
Assessment and Plan - Patient Problems (1) S/P Current Visit: Yes Status: Acute Plan to address problem: --Meeting /postoperative goals. Anticipate discharge in 24-48H (2) Anemia Current Visit: Yes Status: Acute Plan to address problem: Likely 2/2 acute on chronic anemia given delivery. Repeat CBC today. Consider transfusion if patient symptomatic and/or Hgb drops >7. Subjective - Subjective Date of service: 11/11/20 Principal diagnosis: /postop day 2 S/P primary LTCS Interval history: Patient doing well in the /postoperative state. Reports pain mostly controlled. Tolerating po. Ambulating, urinating spontaneously. Intermittent dizziness. Patient reports: appetite normal, voiding normally, pain well controlled, flatus, ambulating normally Loraine: doing well Objective - Vital Signs Latest vital signs: Vital Signs Temp Pulse Resp BP BP Pulse Ox 11/11/20 08:41 97.6 F 67 18 105/70 11/11/20 00:30 98.6 F 77 16 121/70 11/10/20 16:55 99.3 F 99 H 18 116/71 97 Intake and Output 11/10/20 11/11/20 11/11/20 23:59 07:59 15:59 Intake Total 1140 300 240 Balance 1140 300 240 Intake: Oral 480 240 Intake, Free Water 660 300 Other: Total, Intake Amount 480 240 # Voids Void 1 1 1 - Exam Cardiovascular: Present: Regular rate Lungs: Present: Clear to auscultation, Normal air movement Abdomen: Present: normal appearance, normal bowel sounds Uterus: Present: fundal height below umbilicus Extremities: Present: normal Incision: Present: normal (bandage removed by me)
[2020-11-11 13:07] LABS: Hematocrit 25.7 % (30.3-42.9); Hemoglobin 8.6 gm/dl (10.1-14.3); Mean Corpuscular HGB Conc 34 % (30-34); Mean Corpuscular Volume 96 fl (79-97); Platelet Count 176 K/mm3 (140-440); Red Blood Count 2.67 M/mm3 (3.65-5.03); Red Cell Distribution Width 14.8 % (13.2-15.2)
[2020-11-11 14:16] LABS: Total Cells Counted 100
[2020-11-11 14:19] LABS: Platelet Estimate Consistent w Auto; RBC Morphology Normal
[2020-11-12] MEDS: FERROUS SULFATE 325 MG TAB PO SCH (09:22)
[2020-11-12] MEDS: IBUPROFEN 800 MG TAB PO PRN (09:22)
--- NOTE | 2020-11-12 09:36 | Discharge Summary ---
Providers - Providers Date of Admission: 11/09/20 05:08 Date of discharge: 11/12/20 Attending physician: CHRISTIAN KHAN MD Primary care physician: CHERYLE FAYE MD Hospitalization Reason for admission: active labor, IUP at term Delivery: , Procedure: primary low transverse Episiotomy: none Laceration: none Incision: normal, dry, intact Other procedures: none complications: none Discharge diagnosis: IUP at term delivered baby: male Hospital course: Pt was admitted to [facility] in labor and had a primary LTCS r/t NRFHT. PP stay was w/o pp complications. See H&P, delivery summary, and pp notes. Condition at discharge: Stable Disposition: [id number] TO HOME OR SELFCARE Plan - Discharge Medications Prescriptions: Ferrous Sulfate [Feosol 325 MG tab] 325 mg PO BID #120 tablet Ibuprofen [Motrin 800 MG tab] 800 mg PO Q6H PRN #30 tablet PRN Reason: Pain, Moderate (4-6) oxyCODONE /ACETAMINOPHEN [Percocet 5/325 mg] 1 tab PO Q6H PRN #30 tablet PRN Reason: Pain, Moderate (4-6) - Provider Discharge Summary Additional instructions: [] Smoking cessation referral if applicable(refer to patient education folder for contact #) [] Refer to [facility] Booklet Call your doctor immediately for: * Fever > 100.5 * Heavy vaginal bleeding ( >1 pad per hour) * Severe persistent headache * Shortness of breath * Reddened, hot, painful area to leg or breast * Drainage or odor from incision. * Keep incision clean and dry at all times and follow doctor's instructions regarding bathing/showering - Follow up plan Follow up: MALIK GONZALEZ JR, MD [Staff Physician] - 14 Days
[2020-11-12 12:50] VITALS: BP 116/71
== END 2020-11-12 13:01 | disposition home or self-care (01) | DRG 788 ==
LOC: TRG 20:20 → APU 20:20 → LD 21:31 → TRG 11-09 05:07 → EDBD 11-09 05:08 → LD 11-09 05:08 → OB 11-09 08:23
PROC: 10D00Z1 Extraction of Products of Conception, Low, Open Approach (ICD-10-PCS; principal; 2020-11-09)
DX: O76 Abnormality in fetal heart rate and rhythm complicating labor and delivery (principal); O75.0 Maternal distress during labor and delivery; Z3A.39 39 weeks gestation of pregnancy; Z37.0 Single live birth; Z20.822 Contact with and (suspected) exposure to COVID-19; O90.81 Anemia of the puerperium
CPT/HCPCS: 36415; 80053; 85007; 85014; 85018; 85025; 85027; 86592; 86850; 86900; 86901; 99211; G0378; G0463; J1885; J2405; J2590; J3010; J7030; J7120; Q0169; U0003